=== PATIENT | female | born 1930 | race Hispanic/Latino ===

== ENCOUNTER 2017-10-18 11:29 | Inpatient (IN) | payer MEDICARE, MEDICAID ==
[2017-10-18] MEDS ORDERED: Sodium Chloride 0.9% 2,000 ML IV STA (11:51)
--- NOTE | 2017-10-18 11:56 | ED PDOC ---
Arrival/HPI - General Time Seen by Provider: 10/18/17 11:50 Historian: Half-Way - History of Present Illness Narrative History of Present Illness (Text): 10/18/17 11:56 A 86 year old female [facility] the emergency department [facility] for a [facility]. Patient was found to have worsening renal function and leukocytosis yesterday. She was given Augmentin for a urinary tract infection. Prior charts reviewed, patient has a history of dementia. Patient unable to provide additional hisotry, HPI and ROS limited. PMD: Dr. Rojo Time/Duration: Prior to Arrival Symptom Course: Unchanged Context: Home (jail) Past Medical History - Provider Review Nursing Documentation Reviewed: Yes - Infectious Disease Hx of Infectious Diseases: None - Tetanus Immunization Tetanus Immunization: Unknown - Cardiac Hx Cardiac Disorders: Yes Hx Cardiac Arrhythmia: Yes Hx Circulatory Problems: Yes Hx Congestive Heart Failure: Yes Hx Hypertension: Yes Hx Pacemaker: Yes (LEFT CHEST WALL) Other/Comment: CAD - Pulmonary Hx Respiratory Disorders: Yes Hx Asthma: Yes Hx Pneumonia: Yes - Neurological Hx Neurological Disorder: Yes Hx Dementia: Yes - HEENT Hx HEENT Disorder: Yes Hx Cataracts: Yes Hx Deafness: Yes - Renal Hx Renal Disorder: Yes Hx Renal Failure: Yes - Endocrine/Metabolic Hx Endocrine Disorders: Yes Hx Diabetes Mellitus Type 1: Yes Hx Hypothyroidism: Yes - Hematological/Oncological Hx Blood Disorders: Yes Hx Anemia: Yes Hx Blood Transfusions: No - Integumentary Hx Dermatological Disorder: Yes (SKIN DRYNESS,EDEMA BILATERAL LE,) Hx Psoriasis: Yes - Musculoskeletal/Rheumatological Hx Musculoskeletal Disorders: Yes Hx Falls: Yes Hx Unsteady Gait: Yes (WALKER) - Gastrointestinal Hx Gastrointestinal Disorders: Yes (CONSTIPATION) Hx Gastroesophageal Reflux: Yes - Genitourinary/Gynecological Hx Genitourinary Disorders: Yes (URGENCY) - Psychiatric Hx Psychophysiologic Disorder: Yes Hx Anxiety: Yes Other/Comment: DEMENTIA - Past Surgical History Past Surgical History: No Previous - Surgical History Hx Cataract Extraction: Yes (RIGHT IOLI) Hx Cardiac Catheterization: Yes - Anesthesia Hx Anesthesia: Yes Hx Anesthesia Reactions: No Hx Malignant Hyperthermia: No - Suicidal Assessment Feels Threatened In Home Enviroment: No Family/Social History - Physician Review Nursing Documentation Reviewed: Yes Family/Social History: No Known Family HX Smoking Status: Never Smoked Hx Alcohol Use: No Hx Substance Use Treatment: No Allergies/Home Meds Allergies/Adverse Reactions: Allergies ciprofloxacin Allergy (Severe, Verified 10/18/17 12:13) RASH Home Medications: Home Meds Medication Instructions Recorded Confirmed Febuxostat [Uloric] 40 mg PO DAILY 11/21/13 01/12/16 Docusate [Colace] 1 tab PO DAILY 01/12/16 01/12/16 Levothyroxine Sodium [Synthroid] 1 tab PO DAILY 01/12/16 01/12/16 Review of Systems - Review of Systems Systems not reviewed;Unavailable: Dementia Physical Exam Vital Signs Reviewed: Yes Vital Signs Temp Pulse Resp BP Pulse Ox 10/18/17 14:56 69 29 H 103/55 L 100 10/18/17 13:15 102.8 F H 10/18/17 12:12 102.8 F H 78 32 H 137/63 100 Temperature: Febrile Blood Pressure: Normal Pulse: Regular Respiratory Rate: Tachypneic Appearance: Positive for: Ill-Appearing, Cachectic - Systems Exam Head: Present: Atraumatic, Normocephalic Pupils: Present: PERRL Extroacular Muscles: Present: EOMI Conjunctiva: Present: Normal Mouth: Present: Dry Neck: Present: Normal Range of Motion Respiratory/Chest: Present: Decreased Breath Sounds, Other (pacemaker to chest wall). No: Respiratory Distress, Accessory Muscle Use Cardiovascular: Present: Regular Rate and Rhythm, Normal S1, S2. No: Murmurs Abdomen: Present: Normal Bowel Sounds. No: Tenderness, Distention, Peritoneal Signs Upper Extremity: Present: Normal Inspection, Normal ROM (Spontaneous movment of extremities). No: Cyanosis, Edema Lower Extremity: Present: Normal Inspection, Normal ROM (Spontaneous movment of extremities). No: Edema Neurological: Present: Other (opens eyes to voice). No: Speech Normal (making nonsensical speech) Skin: Present: Warm, Dry, Normal Color. No: Rashes Psychiatric: Present: Lethargic, Other (Calm, Cooperative) Medical Decision Making ED Course and Treatment: 10/18/17 11:56 Impression: A 86 year old female sent in form jail for fever Plan: -- Chest xray -- EKG -- Labs -- Blood and Urine culture -- Urinalysis -- Tylenol and IV fluids -- Reassess and disposition Progress Notes: EKG shows paced rhythm at 81 BPM. Interpreted by me. Prior patient documentation demonstrates a "do no hospitalize order". When jail questioned, they report patients power of contracts attorney rescinded it. Report Date : 10/18/2017 12:24 PROCEDURE: Chest xray Dictator : Johnathan Allen MD IMPRESSION: Severe vascular congestion 10/18/17 13:21 Lactate elevated to 3.3. Code sepsis called. 2L NS IV bolus ordered when patient arrived due to SIRS criteria. That is over 30cc/kg. Nurse instructed that those 2L must infuse in under 1 hour. Broad spectrum antibiotics ordered. 10/18/17 14:10 Labs reviewed, significant for leukocytosis, elevated lactate, high potassium and acute kidney injury. IV fluids and broad spectrum antibiotics started. Case discussed with Dr. Rojo, accepts admission to [facility]. Confirms patients DNR/DNI status. 10/18/17 15:23 - Lab Interpretations Lab Results: 10/18/17 12:45 10/18/17 13:46 Lab Results 10/18/17 13:46: Sodium 143, Chloride 104, Potassium 5.5 H, Carbon Dioxide 22, Anion Gap 22 H, BUN 95 H, Creatinine 3.5 H, Est GFR ( Amer) 15, Est GFR ( Non-Af Amer) 12, Random Glucose 214 H, Calcium 9.3, Total Bilirubin 1.1, AST 557 H, ALT 280 H, Alkaline Phosphatase 88, Total Protein 7.6, Albumin 4.0, Globulin 3.6, Albumin/Globulin Ratio 1.1 10/18/17 13:00: Urine Color Yellow, Urine Appearance Sl cloudy, Urine pH 6.0, Ur Specific [place] 1.020, Urine Protein 30 H, Urine Glucose (UA) Negative, Urine Ketones Negative, Urine Blood Trace-intact H, Urine Nitrate Negative, Urine Bilirubin Negative, Urine Urobilinogen 0.2, Ur Leukocyte Esterase Negative , Urine RBC 0 - 2, Urine WBC Negative 10/18/17 12:45: Phosphorus 5.1 H, Magnesium 2.3 H 10/18/17 12:45: pO2 44, VBG pH 7.41, VBG pCO2 36.0 L, VBG HCO3 22.8, VBG Total CO2 23.9, VBG O2 Sat (Calc) 78.4 H, VBG Base Excess -1.4 L, VBG Potassium 5.9 H , Sodium 139.0, Chloride 106.0, Glucose 221 H, Lactate 3.2 H, FiO2 21.0, Venous Blood Potassium 5.9 H 10/18/17 12:45: WBC 13.6 H D, RBC 3.37 L, Hgb 10.6 L, Hct 31.9 L, MCV 94.7, MCH 31.5, MCHC 33.2, RDW 13.3, Plt Count 122, MPV 10.6, Gran % 89.5 H, Lymph % (Auto ) 6.6 L, [place] % (Auto) 3.8, Eos % (Auto) 0.0 L, Baso % (Auto) 0.1, Gran # 12.17 H, Lymph # 0.9 L, [place]cher # 0.5, Eos # 0.0, Baso # 0.01 I have reviewed the lab results: Yes - RAD Interpretation Radiology Orders: 10/18/17 11:51 CHEST PORTABLE [RAD] Stat - Medication Orders Current Medication Orders: Discontinued Medications Acetaminophen (Tylenol 325 Mg Supp) 650 mg RC STAT STA Stop: 10/18/17 11:52 Last Admin: 10/18/17 13:15 Dose: 650 mg MAR Pain/Vitals Document 10/18/17 13:15 HI (Rec: 10/18/17 13:17 HI [id number]) Vitals Temperature (97.6 F-99.6 F) 102.8 F Sodium Chloride (Sodium Chloride 0.9%) 2,000 mls @ 999 mls/hr IV .Q2H1M STA Stop: 10/18/17 13:51 Last Admin: 10/18/17 13:15 Dose: 999 mls/hr eMAR Start Stop Document 10/18/17 13:15 HI (Rec: 10/18/17 13:15 HI [id number]) Intravenous Solution Start Date 10/18/17 Start Time 13:15 Sodium Chloride 1,000 ml/ IV (SUPPLIES) 1,000 mls @ 2,585.46 mls/hr IV ONCE ONE PRN Reason: 60 ML/KG/HR Stop: 10/18/17 13:20 Last Admin: 10/18/17 13:15 Dose: 2,585.46 mls/hr eMAR Start Stop Document 10/18/17 13:15 HI (Rec: 10/18/17 13:42 HI [id number]) Intravenous Solution Start Date 10/18/17 Start Time 13:15 Vancomycin HCl (Vancomycin 1gm) 1 gm in 250 mls @ 167 mls/hr IVPB STAT STA PRN Reason: Protocol Stop: 10/18/17 15:00 Last Admin: 10/18/17 14:11 Dose: 167 mls/hr eMAR Start Stop Document 10/18/17 14:11 HI (Rec: 10/18/17 14:12 HI [id number]) Intravenous Solution Start Date 10/18/17 Start Time 14:12 Piperacillin Sod/Tazobactam Sod (Zosyn 3.375 In Ns 100ml) 100 mls @ 200 mls/hr IVPB STAT STA PRN Reason: Protocol Stop: 10/18/17 14:00 Last Admin: 10/18/17 13:45 Dose: 200 mls/hr eMAR Start Stop Document 10/18/17 13:45 HI (Rec: 10/18/17 13:45 HI [id number]) Intravenous Solution Start Date 10/18/17 Start Time 13:45 - Scribe Statement The provider has reviewed the documentation as recorded by the Brook Gruber Provider Scribe Attestation: All medical record entries made by the Scribe were at my direction and personally dictated by me. I have reviewed the chart and agree that the record accurately reflects my personal performance of the history, physical exam, medical decision making, and the department course for this patient. I have also personally directed, reviewed, and agree with the discharge instructions and disposition. Disposition/Present on Arrival - Present on Arrival Any Indicators Present on Arrival: No History of DVT/PE: No History of Uncontrolled Diabetes: Yes Urinary Catheter: No History Surgical Site Infection Following: None - Disposition Have Diagnosis and Disposition been Completed?: Yes Diagnosis: Sepsis, Dementia, Acute kidney injury Disposition: HOSPITALIZED Disposition Time: 15:24 Patient Plan: Admission Condition: FAIR
--- NOTE | 2017-10-18 12:25 | RAD ---
HISTORY: fever COMPARISON: 12/06/2014 FINDINGS: LUNGS: There is severe vascular congestion PLEURA: No significant pleural effusion identified, no pneumothorax apparent. CARDIOVASCULAR: Mild cardiomegaly. Calcifications within the left ventricle. Dual lead pacemaker OSSEOUS STRUCTURES: No significant abnormalities. VISUALIZED UPPER ABDOMEN: Normal. OTHER FINDINGS: None. IMPRESSION: Severe vascular congestion
[2017-10-18 13:03] LABS: VENOUS BLOOD GAS BASE EXCESS -1.4 mmol/L (0.0-2.0); VENOUS BLOOD GAS PO2 44 mm/Hg (30-55); VENOUS BLOOD PH 7.41 (7.32-7.43)
[2017-10-18 13:05] LABS: BASO # 0.01 K/mm3 (0.0-2.0); BASO % 0.1 % (0.0-3.0); GRAN # 12.17 (1.4-6.5); GRAN % 89.5 % (50.0-68.0); HEMOGLOBIN 10.6 g/dL (12.0-16.0); LYMPH # 0.9 (1.2-3.4); LYMPH % 6.6 % (22.0-35.0); MEAN CELL VOLUME 94.7 fl (80.0-105.0); MEAN CORPUSCULAR HEMOGLOBIN 31.5 pg (25.0-35.0); MEAN CORPUSCULAR HGB CONC 33.2 g/dl (31.0-37.0); MEAN PLATELET VOLUME 10.6 fl (7.0-11.0); MONO # 0.5 (0.1-0.6); MONO % 3.8 % (1.0-6.0); RBC 3.37 10^6/uL (3.5-6.1); RED CELL DISTRIBUTION WIDTH 13.3 % (11.5-14.5); WHITE BLOOD COUNT 13.6 10^3/ul (4.5-11.0)
[2017-10-18 13:21] LABS: MAGNESIUM 2.3 mg/dL (1.7-2.2)
[2017-10-18] MEDS ORDERED: Piperacillin/Tazobact 3.375 gm 100 ML IVPB STA (13:31)
[2017-10-18] MEDS ORDERED: Vancomycin 1gm in NS 250ml 1 GM/250 ML BAG IVPB STA (13:31)
[2017-10-18 13:36] LABS: URINE BILIRUBIN NEGATIVE (NEGATIVE); URINE BLOOD TRACE-INTACT (NEGATIVE); URINE GLUCOSE (UA) NEGATIVE (NEGATIVE); URINE LEUKOCYTE ESTERASE NEGATIVE Leu/uL (NEGATIVE); URINE NITRATE NEGATIVE (NEGATIVE); URINE PROTEIN 30 mg/dL (<30 mg/dL); URINE UROBILINOGEN 0.2 E.U./dL (<1 E.U./dL)
[2017-10-18 13:37] LABS: URINE APPEARANCE SL CLOUDY (CLEAR); URINE COLOR YELLOW (YELLOW)
[2017-10-18 13:46] LABS: URINE RBC 0 - 2 /hpf (0-2); URINE WBC NEGATIVE /hpf (0-6)
[2017-10-18 14:08] LABS: ALB/GLOB RATIO 1.1 (1.1-1.8); CALCIUM 9.3 mg/dL (8.4-10.5)
[2017-10-18 16:31] LABS: VENOUS BLOOD GAS BASE EXCESS -3.4 mmol/L (0.0-2.0); VENOUS BLOOD GAS PO2 214 mm/Hg (30-55); VENOUS BLOOD PH 7.41 (7.32-7.43)
--- NOTE | 2017-10-18 17:45 | CARD ---
APPROVED REPORT EKG Measurement Heart [id number] ID [id number] <Conclusion> Atrial sensed ventricular paced rhythm
--- NOTE | 2017-10-18 18:44 | PCM.SEPTIC ---
Sepsis Progress Note - Reassessment Type Date of Evaluation: 10/18/17 Time of Evaluation: 18:43 Reassessment Type: Non-invasive reassessment - Non Invasive Reassessment Were the most recent vital sign reviewed: Yes Vital Sign (Latest): Temp Pulse Resp BP Pulse Ox 97.6 F 73 24 93/49 L 96 10/18/17 17:30 10/18/17 17:30 10/18/17 17:30 10/18/17 17:30 10/18/17 17:30 Cardiovascular: Yes: Regular Rate, Rhythm. No: Edema, Bradycardia, Tachycardia , Irregularly Irregular Respiratory: Yes: Normal Breath Sounds. No: Decreased Breath Sounds, Accessory Muscle Use, Crackles, Rales, Rhonchi, Respiratory Distress Capillary Refill: Normal (Less than 2 sec) Pulses: Normal Radial, Decreased Dorsalis Pedis, Decreased Posterior Tibialis Skin: Normal Color, Warm, Dry
--- NOTE | 2017-10-19 07:59 | CP.PCM.HP ---
<Diya Garcia - Last Filed: 10/19/17 11:31> History of Present Illness - History of Present Illness History of Present Illness: PGY-[address] Rojo CC: Worsening renal function and leukocytosis Ms Vences, a 86 year old [place] female, care home resident at [facility], with PMH dementia, presented to the ED for a fever. Per Zachary RN at the care home, pt vomited x2 on 10/15. Denied diarrhea or abdominal pain. VSS at that moment but accuchecl was in 315. Blood work was sent , and started augmentin for urinary tract infection. On the , care home recorded Tmax 104.2. Blood work at care home showed leukocytosis and worsening renal function. At baseline, pt is AAO x 2 and ambulate with rolling walker and able to make needs known. Patients power of assistant district attorney rescinded DNH which was in the chart. DNR/DNI was confirmed PMH Dementia Cardiac arrthymia s/o pacemaker placement CAD CHF, LVEF 50% (2014) Severe mitral regurg, Sever tricuspid regurl Asthma, COPD, severe Pulm HTN R Cataract, Deafness DM 1 CKD 3B Hypothyroisidm Anemia Gait disfunction, walker Hx fall Hx Esophagitis, Constipation Urinary urgency PSH R and L cataract extraction 2016 Pacemaker placement FH n/a SH Never smoke Denies ETOH/Drug All Ciprofloxacin Med Doryx 100 Q12 ASA, Plavix, cireg, lipitor Lasix 40 QD Lovaza, Febuxostate 40 daily, Zetia Duoneb Q6 Colace, Protonix Synthroid mag-Ox Rivastigmine, Ritalin Humulin N 5 u [facility] PMD: Dr. Rojo Present on Admission - Present on Admission Any Indicators Present on Admission: No Review of Systems - Review of Systems Systems not reviewed;Unavailable: Dementia All systems: reviewed and no additional remarkable complaints except - Constitutional Constitutional: Fatigue, Fever, Lethargy, Malaise Past Patient History - Infectious Disease Hx of Infectious Diseases: None - Tetanus Immunizations Tetanus Immunization: Unknown - Past Medical History & Family History Past Medical History?: Yes - Past Social History Smoking Status: Unknown If Ever Smoked - CARDIAC Hx Cardiac Disorders: Yes Hx Cardia Arrhythmia: Yes Hx Circulatory Problems: Yes Hx Congestive Heart Failure: Yes Hx Hypertension: Yes Hx Pacemaker: Yes (left chest wall) Other/Comment: CAD - PULMONARY Hx Respiratory Disorders: Yes Hx Asthma: Yes Hx Pneumonia: Yes - NEUROLOGICAL Hx Neurological Disorder: Yes Hx Dementia: Yes - HEENT Hx HEENT Problems: Yes Hx Blind: Yes Hx Deafness: Yes - RENAL Hx Chronic Kidney Disease: Yes Hx Renal Failure: Yes - ENDOCRINE/METABOLIC Hx Endocrine Disorders: Yes Hx Diabetes Mellitus Type 2: Yes Hx Hypothyroidism: Yes - HEMATOLOGICAL/ONCOLOGICAL Hx Blood Disorders: No - INTEGUMENTARY Hx Dermatological Problems: No - MUSCULOSKELETAL/RHEUMATOLOGICAL Hx Musculoskeletal Disorders: Yes Hx Falls: Yes Hx Unsteady Gait: Yes - GASTROINTESTINAL Hx Gastrointestinal Disorders: Yes Hx Gastroesophageal Reflux: Yes - GENITOURINARY/GYNECOLOGICAL Hx Genitourinary Disorders: Yes Other/Comment: urgency - PSYCHIATRIC Hx Psychophysiologic Disorder: Yes Other/Comment: dementia - SURGICAL HISTORY Hx Surgeries: Yes (rt IOLI) - ANESTHESIA Hx Anesthesia: Yes Hx Anesthesia Reactions: No Hx Malignant Hyperthermia: No Meds Allergies/Adverse Reactions: Allergies Allergy/AdvReac Type Severity Reaction Status Date / Time ciprofloxacin Allergy Severe RASH Verified 10/18/17 12:13 Physical Exam - Constitutional Appears: No Acute Distress, Cachectic - Head Exam Head Exam: ATRAUMATIC, NORMAL INSPECTION, NORMOCEPHALIC - Eye Exam Eye Exam: EOMI, Normal appearance, PERRL. absent: Scleral icterus Pupil Exam: NORMAL ACCOMODATION - ENT Exam ENT Exam: Mucous Membranes Dry - Neck Exam Additional comments: supple - Respiratory Exam Respiratory Exam: Decreased Breath Sounds (all lung mcfarlane), Clear to Auscultation Bilateral, Rales (mild lung bases), NORMAL BREATHING PATTERN. absent: Rhonchi, Wheezes - Cardiovascular Exam Cardiovascular Exam: REGULAR RHYTHM, +S1, +S2, Systolic Murmur - GI/Abdominal Exam GI & Abdominal Exam: Normal Bowel Sounds, Soft. absent: Tenderness - Extremities Exam Extremities exam: Positive for: pedal pulses present. Negative for: calf tenderness, pedal edema - Neurological Exam Neurological exam: Alert Additional comments: Able to follow simple instructions and make needs known - Psychiatric Exam Psychiatric exam: Normal Affect, Normal Mood - Skin Skin Exam: Dry, Warm Additional comments: scratch mckeon on b/l legs Results - Vital Signs Recent Vital Signs: Last Vital Signs Temp 97.3 F L 10/19/17 00:00 Pulse 65 10/19/17 00:00 Resp 20 10/19/17 00:00 BP 108/53 L 10/19/17 00:00 Pulse Ox 99 10/19/17 00:00 - Labs Result Diagrams: 10/19/17 09:15 10/19/17 09:15 Labs: Laboratory Results - last 24 hr 10/18/17 16:28 pO2 214 H VBG pH 7.41 VBG pCO2 32.0 L VBG HCO3 20.3 L VBG Total CO2 21.3 L VBG O2 Sat (Calc) 100.5 H VBG Base Excess -3.4 L VBG Potassium 4.9 Sodium 142.0 Chloride 111.0 H Glucose 198 H Lactate 1.3 FiO2 21.0 Venous Blood Potassium 4.9 Assessment & Plan - Assessment and Plan (Free Text) Plan: 86F from care home with dementia presented with fever and leukocytosis, She was being actively treated for UTI on augmentin. In the ED, sepsis code was called Tmax 102.8, RR 32, lactate 3.2. Fluid resusitation was started and pt received vancomycin and zosyn x 1. Pt is likely septic from UTI vs aspiration pneumonia. ARBEN and transaminitis likely reactive to sepsis. CXR showed severe vascular congestion without pulmonary edema, likely from sepsis vs CHF exacerbation r/o aspiration penumonia. Sepsis likely from UTI r/o aspiration pneumonia - Zosyn and Vanco x 1 - Pending blood and urine culture - Pending rapid flu, procalcitonin - ID consult - Swallow eval and treat - Consider CT chest to r/o infiltrate vs fluid overload vs pna - tylenol prn, zofran prn, aspiration precaution Severe vascular congestion Hx CHF with LVEF 50% (2014) Severe mitral and tricspid regurgitation with atrial enlargements - O2 PRN - Consider echocardiogram - TSH Arethymia s/p pacemaker placement - Consider pacemaker interrogation ARBEN on CKD 3B, pre-renal vs intrinsic. Has ruled out obstruction - sarmiento to measure i/o - Consider FeNa Transaminitis likely reactive to sepsis r/o infection or cholestasis etiology AST 557, ALT 280 - consider hepatitis panel and abdominal ultrasound to r/o gallstone Hypothyrodism - Levothyroxine 100 mcg QD Consider GI prophylaxis due to sepsis Consider DVT prophylaxis due to lethargy and decreased activity s/r/d/w Dr. Rojo <Raj Rojo S - Last Filed: 10/19/17 17:30> Results - Vital Signs Recent Vital Signs: Last Vital Signs Temp 97.6 F 10/19/17 07:30 Pulse 73 10/19/17 07:30 Resp 24 10/19/17 07:30 BP 118/68 10/19/17 07:30 Pulse Ox 96 10/19/17 07:30 - Labs Result Diagrams: 10/19/17 09:15 10/19/17 09:15 Labs: Laboratory Results - last 24 hr 10/19/17 10/19/17 10/19/17 09:15 09:15 10:10 WBC 18.2 H D RBC 3.58 Hgb 11.2 L Hct 33.7 L MCV 94.1 MCH 31.3 MCHC 33.2 RDW 13.3 Plt Count 138 MPV 10.3 Sodium 146 Potassium 5.1 H Chloride 113 H Carbon Dioxide 20 L Anion Gap 19 BUN 103 H Creatinine 3.5 H Est GFR ( Amer) 15 Est GFR (Non-Af Amer) 12 Random Glucose 124 H Calcium 8.4 Total Bilirubin 1.1 AST 939 H D ALT 634 H Alkaline Phosphatase 79 Total Protein 6.7 Albumin 3.3 Globulin 3.4 Albumin/Globulin Ratio 0.9 L Procalcitonin 27.74 H Influenza Typ A,B (EIA) 10/19/17 13:50 WBC RBC Hgb Hct MCV MCH MCHC RDW Plt Count MPV Sodium Potassium Chloride Carbon Dioxide Anion Gap BUN Creatinine Est GFR ( Amer) Est GFR (Non-Af Amer) Random Glucose Calcium Total Bilirubin AST ALT Alkaline Phosphatase Total Protein Albumin Globulin Albumin/Globulin Ratio Procalcitonin Influenza Typ A,B (EIA) Negative for flu a/b Assessment & Plan - Assessment and Plan (Free Text) Plan: Pt seen and examined by me. I reviewed the above note and the ER note. Agree with the Assessment and plan. Reviewed old notes. Reviewed labs and medications. Spoke to family.
[2017-10-19 09:29] LABS: HEMOGLOBIN 11.2 g/dL (12.0-16.0); MEAN CELL VOLUME 94.1 fl (80.0-105.0); MEAN CORPUSCULAR HEMOGLOBIN 31.3 pg (25.0-35.0); MEAN CORPUSCULAR HGB CONC 33.2 g/dl (31.0-37.0); MEAN PLATELET VOLUME 10.3 fl (7.0-11.0); RBC 3.58 10^6/uL (3.5-6.1); RED CELL DISTRIBUTION WIDTH 13.3 % (11.5-14.5); WHITE BLOOD COUNT 18.2 10^3/ul (4.5-11.0)
[2017-10-19 09:45] LABS: ALB/GLOB RATIO 0.9 (1.1-1.8); ALBUMIN 3.3 g/dL (3.0-4.8); CALCIUM 8.4 mg/dL (8.4-10.5)
[2017-10-19] MEDS ORDERED: Levothyroxine 25 MCG TAB PO SCH (10:00)
[2017-10-19] MEDS: Sodium Chloride 0.9% 1,000 ML IV SCH (10:30)
[2017-10-19] MEDS: Levothyroxine 100 MCG TAB PO SCH (10:31)
--- NOTE | 2017-10-19 13:40 | CP.PCM.CON ---
History of Present Illness - History of Present Illness History of Present Illness: 86 year old female with PMH of dementia, hypothyroidism, dementia, S/P pacemaker placement, CAD chronic CHF, COPD, pulmonary HTN, chronic renal failure , chronic anemia, history of esophagitis, right cataract, was brought in to [facility] because of fever, as well as worsening renal failure and leukocytosis. She was being treated for possible UTI as an outpatient with Augmentin. There is no note of convulsions, no loss of consciousness, no vomiting, no diarrhea. Full review of systems is unobtainable because of the patient's dementia. In the ED, she was noted to have leukocytosis, fever and lactic acidosis. Infectious Diseases consult is requested to further evaluate and manage. Review of Systems - Review of Systems Systems not reviewed;Unavailable: Dementia Past Patient History - Infectious Disease Hx of Infectious Diseases: None - Tetanus Immunizations Tetanus Immunization: Unknown - Past Medical History & Family History Past Medical History?: Yes - Past Social History Smoking Status: Unknown If Ever Smoked - CARDIAC Hx Cardiac Disorders: Yes Hx Cardia Arrhythmia: Yes Hx Circulatory Problems: Yes Hx Congestive Heart Failure: Yes Hx Hypertension: Yes Hx Pacemaker: Yes (left chest wall) Other/Comment: CAD - PULMONARY Hx Respiratory Disorders: Yes Hx Asthma: Yes Hx Pneumonia: Yes - NEUROLOGICAL Hx Neurological Disorder: Yes Hx Dementia: Yes - HEENT Hx HEENT Problems: Yes Hx Blind: Yes Hx Deafness: Yes - RENAL Hx Chronic Kidney Disease: Yes Hx Renal Failure: Yes - ENDOCRINE/METABOLIC Hx Endocrine Disorders: Yes Hx Diabetes Mellitus Type 2: Yes Hx Hypothyroidism: Yes - HEMATOLOGICAL/ONCOLOGICAL Hx Blood Disorders: No - INTEGUMENTARY Hx Dermatological Problems: No - MUSCULOSKELETAL/RHEUMATOLOGICAL Hx Musculoskeletal Disorders: Yes Hx Falls: Yes Hx Unsteady Gait: Yes - GASTROINTESTINAL Hx Gastrointestinal Disorders: Yes Hx Gastroesophageal Reflux: Yes - GENITOURINARY/GYNECOLOGICAL Hx Genitourinary Disorders: Yes Other/Comment: urgency - PSYCHIATRIC Hx Psychophysiologic Disorder: Yes Other/Comment: dementia - SURGICAL HISTORY Hx Surgeries: Yes (rt IOLI) - ANESTHESIA Hx Anesthesia: Yes Hx Anesthesia Reactions: No Hx Malignant Hyperthermia: No Meds Allergies/Adverse Reactions: Allergies Allergy/AdvReac Type Severity Reaction Status Date / Time ciprofloxacin Allergy Severe RASH Verified 10/18/17 12:13 Physical Exam - Constitutional Appears: Chronically Ill - Head Exam Head Exam: NORMAL INSPECTION - Respiratory Exam Respiratory Exam: Decreased Breath Sounds - Cardiovascular Exam Cardiovascular Exam: +S1, +S2 - GI/Abdominal Exam GI & Abdominal Exam: Soft. absent: Tenderness Results - Vital Signs Recent Vital Signs: Last Vital Signs Temp 97.3 F L 10/19/17 00:00 Pulse 65 10/19/17 00:00 Resp 20 10/19/17 00:00 BP 108/53 L 10/19/17 00:00 Pulse Ox 99 10/19/17 00:00 - Labs Result Diagrams: 10/19/17 09:15 10/19/17 09:15 Labs: Laboratory Results - last 24 hr 10/18/17 16:28 pO2 214 H VBG pH 7.41 VBG pCO2 32.0 L VBG HCO3 20.3 L VBG Total CO2 21.3 L VBG O2 Sat (Calc) 100.5 H VBG Base Excess -3.4 L VBG Potassium 4.9 Sodium 142.0 Chloride 111.0 H Glucose 198 H Lactate 1.3 FiO2 21.0 Venous Blood Potassium 4.9 Assessment & Plan - Assessment and Plan (Free Text) Plan: Assessment Systemic Inflammatory response syndrome, R/O sepsis from UTI, R/O Influenza transaminitis, etiology to be determined dementia hypothyroidism dementia S/P pacemaker placement CAD chronic CHF COPD pulmonary HTN chronic renal failure chronic anemia history of esophagitis right cataract Plan Started patient on a dose of IV Vancomycin and started Cefepime pending blood cx , urine cx; will check rapid Influenza test CXR is showing vascular congestion follow up U/S abdomen for the transaminitis and hepatitis profile
--- NOTE | 2017-10-19 13:46 | US ---
HISTORY: transaminitis COMPARISON: None. TECHNIQUE: Sonographic evaluation of the abdomen. FINDINGS: LIVER: Measures cm. Normal echogenicity of the liver parenchyma. No mass. No intrahepatic bile duct dilatation. GALLBLADDER: Unremarkable. No gallstones. COMMON BILE DUCT: Measures mm. No stones. No dilatation. PANCREAS: Unremarkable as visualized. No mass. No ductal dilatation. RIGHT KIDNEY: Measures cm. Normal echogenicity. No calculus, mass, or hydronephrosis. 1.6 centimeter hyperechoic mass along the mid right kidney. LEFT KIDNEY: Measures cm. Normal echogenicity. No calculus, mass, or hydronephrosis. 2.5 centimeter mid left renal cyst. SPLEEN: Normal in size and contour. No mass. AORTA: No aneurysmal dilatation. IVC: Unremarkable. OTHER FINDINGS: None. 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 Correlate with CT scan with without contrast. Simple cyst in the left kidney.
[2017-10-19] MEDS: Cefepime 1gm in NS 100ml 1 GM/100 ML BAG IVPB SCH (14:16)
[2017-10-19] MEDS: Oseltamivir 6 MG/ML PO SCH (16:25)
--- NOTE | 2017-10-20 02:11 | CP.PCM.PN ---
Subjective - Date & Time of Evaluation Date of Evaluation: 10/20/17 Time of Evaluation: 02:11 - Subjective Subjective: S:Low grade fever. 100.2* It was 103*F.earlier . Medical record was reviewed. Septic work up has been done, is on Maxipime, ID customer service sales consultant is on case. O: Last Vital Signs 3 Temp 103 F H 10/19/17 19:26 Pulse 81 10/19/17 19:26 Resp 20 10/19/17 19:26 BP 142/76 10/19/17 19:26 Pulse Ox 91 L 10/19/17 19:26 LUNGS: Normal breathing pattern. A: Low grade fever. P: Liquid tylenol as ordered. Objective - Vital Signs/Intake and Output Vital Signs (last 24 hours): Temp Pulse Resp BP Pulse Ox 103 F H 81 20 142/76 91 L 10/19/17 19:26 10/19/17 19:26 10/19/17 19:26 10/19/17 19:26 10/19/17 19:26 Intake and Output: 10/19/17 10/20/17 18:59 06:59 Intake Total 60 Output Total 100 Balance -100 60 - Medications Medications: Current Medications Sodium Chloride (Sodium Chloride 0.9%) 1,000 mls @ 75 mls/hr IV .[id number] NAINA Last Admin: 10/19/17 10:30 Dose: 75 mls/hr Cefepime HCl (Maxipime 1gm) 1 gm in 100 mls @ 100 mls/hr IVPB Q24H NAINA PRN Reason: Protocol Last Admin: 10/19/17 14:16 Dose: 100 mls/hr Levothyroxine Sodium (Synthroid) 100 mcg PO DAILY NAINA Last Admin: 10/19/17 10:31 Dose: 100 mcg Oseltamivir Phosphate (Tamiflu Susp) 30 mg PO DAILY NAINA PRN Reason: Protocol Last Admin: 10/19/17 16:25 Dose: 30 mg - Labs Labs: 10/19/17 09:15 10/19/17 09:15
[2017-10-20] MEDS ORDERED: Acetaminophen 160 mg/5 ml UD PO STA (02:13)
[2017-10-20] MEDS: Sodium Chloride 0.9% 1,000 ML IV SCH ×2 (02:45→18:12)
[2017-10-20 07:28] LABS: HEMOGLOBIN 10.8 g/dL (12.0-16.0); MEAN CELL VOLUME 94.9 fl (80.0-105.0); MEAN CORPUSCULAR HEMOGLOBIN 30.7 pg (25.0-35.0); MEAN CORPUSCULAR HGB CONC 32.3 g/dl (31.0-37.0); RBC 3.52 10^6/uL (3.5-6.1); RED CELL DISTRIBUTION WIDTH 13.4 % (11.5-14.5); WHITE BLOOD COUNT 14.5 10^3/ul (4.5-11.0)
[2017-10-20 07:46] LABS: T4 5.8 ug/dL (5.5-11.0)
[2017-10-20 07:51] LABS: ALBUMIN 3.2 g/dL (3.0-4.8); BLOOD UREA NITROGEN 119 mg/dL (7-21); CALCIUM 8.4 mg/dL (8.4-10.5); GFR AFRICAN-AMERICAN 13; GFR NON-AFRICAN AMERICAN 11
[2017-10-20 10:23] LABS: ALT/SGPT 3844 U/L (7-56)
[2017-10-20] MEDS: Acetaminophen 160 mg/5 ml UD PO PRN ×2 (10:31→18:30)
[2017-10-20] MEDS: Levothyroxine 100 MCG TAB PO SCH (10:31)
[2017-10-20] MEDS: Oseltamivir 6 MG/ML PO SCH (10:57)
[2017-10-20 11:22] LABS: AST/SGOT 5978 U/L (14-36)
[2017-10-20] MEDS: Cefepime 1gm in NS 100ml 1 GM/100 ML BAG IVPB SCH (18:11)
--- NOTE | 2017-10-20 21:39 | PN ---
DATE: 10/20/2017 SUBJECTIVE: The patient is seen earlier this morning in room 574, bed 2. No fevers this morning. PHYSICAL EXAMINATION: VITAL SIGNS: However, last night, the patient did have a temperature of 103, blood pressure is 140/70, respiratory rate of 20, heart rate of 81, saturating at 91% on room air. HEENT: Unremarkable. NECK: Supple. LUNGS: Decreased breath sounds. HEART: Normal S1 and S2. ABDOMEN: Soft and nontender. LABORATORY DATA: Reveals a white count of 14,500, hemoglobin of 10, platelets of 154. BUN of 119, creatinine of 3.9. LFTs are elevated and increased now. Urinalysis is noted. Serology reveals influenza is negative. Microbiology reveals blood culture, no growth and urine cultures, no growth. Dr. Jimenez's progress note from today is reviewed. The patient's abdominal ultrasound is noted. Chest x-ray show severe vascular congestion. ASSESSMENT AND PLAN: This is an 86-year-old female with coronary artery disease, chronic obstructive lung disease, pulmonary hypertension, renal failure, chronic anemia, esophagitis, who was admitted with systemic inflammatory response syndrome, dementia, hypothyroidism, pacemaker, congestive heart failure on vancomycin and cefepime with thus far negative blood cultures, negative urine cultures, and vascular congestion on the chest x-ray. Overall prognosis is quite poor. We will continue written course on cefepime. Bobby Stringer MD
[2017-10-21 07:47] LABS: HEMOGLOBIN 10.7 g/dL (12.0-16.0); MEAN CORPUSCULAR HEMOGLOBIN 31.4 pg (25.0-35.0); MEAN CORPUSCULAR HGB CONC 31.9 g/dl (31.0-37.0); MEAN PLATELET VOLUME 11.3 fl (7.0-11.0); RBC 3.41 10^6/uL (3.5-6.1); RED CELL DISTRIBUTION WIDTH 13.6 % (11.5-14.5); WHITE BLOOD COUNT 10.4 10^3/ul (4.5-11.0)
[2017-10-21 08:05] LABS: MEAN CELL VOLUME 98.2 fl (80.0-105.0)
[2017-10-21 08:42] LABS: ALB/GLOB RATIO 0.9 (1.1-1.8); ALBUMIN 2.8 g/dL (3.0-4.8); CALCIUM 8.3 mg/dL (8.4-10.5)
[2017-10-21] MEDS: Oseltamivir 6 MG/ML PO SCH (10:54)
[2017-10-21] MEDS: Levothyroxine 100 MCG TAB PO SCH (10:54)
--- NOTE | 2017-10-21 11:53 | PN ---
DATE: 10/21/2017 SUBJECTIVE: The patient is in bed, in no acute distress, nontoxic. However, chronically ill. PHYSICAL EXAMINATION: VITAL SIGNS: Temperature is 97, blood pressure is 130/60, respiratory rate 20, heart rate of 70. HEENT: Unremarkable. NECK: Supple. LUNGS: Have decreased breath sounds. HEART: Normal S1, S2. ABDOMEN: Soft, nontender. LABORATORY DATA: Reveals a white count of 14,100, hemoglobin of 10, platelets of 126. Chemistries reveals a BUN of 118, creatinine of 3.2. Procalcitonin of 27.7 and urinalysis is noted and serology is noted. Pending microbiology reveals the blood cultures are no growth, urine cultures have no growth and review of orders reveals the patient to be on cefepime and Tamiflu. ASSESSMENT/PLAN: This is a 86-year-old female seen in [facility], bed 2 with coronary artery disease, chronic obstructive lung disease, pulmonary hypertension, renal failure, chronic anemia, esophagitis, admitted with systemic inflammatory response syndrome, dementia, hypothyroidism, pacemaker, congestive heart failure, on cefepime and Tamiflu. The patient with influenza is negative. Blood cultures negative and it is day #3 of cefepime and 3 of Tamiflu. With an elevated procalcitonin and vascular congestion on chest x-ray, we will repeat a procalcitonin today. We will follow closely with you. Of note is the patient has a creatinine of 3.2, although will give an elevated procalcitonin, procalcitonin of 27 out of proportion for a creatinine of 3.2. We will follow with you. Bobby Stringer MD
[2017-10-21] MEDS: Sodium Chloride 0.9% 1,000 ML IV SCH (14:14)
[2017-10-21] MEDS: Cefepime 1gm in NS 100ml 1 GM/100 ML BAG IVPB SCH (14:15)
[2017-10-22 08:17] LABS: HEMOGLOBIN 10.4 g/dL (12.0-16.0); MEAN CELL VOLUME 99.4 fl (80.0-105.0); MEAN CORPUSCULAR HEMOGLOBIN 31.3 pg (25.0-35.0); MEAN CORPUSCULAR HGB CONC 31.5 g/dl (31.0-37.0); MEAN PLATELET VOLUME 11.4 fl (7.0-11.0); RBC 3.32 10^6/uL (3.5-6.1); RED CELL DISTRIBUTION WIDTH 13.7 % (11.5-14.5); WHITE BLOOD COUNT 9.4 10^3/ul (4.5-11.0)
[2017-10-22 08:21] LABS: ALB/GLOB RATIO 0.9 (1.1-1.8); ALBUMIN 2.8 g/dL (3.0-4.8); CALCIUM 8.2 mg/dL (8.4-10.5); MAGNESIUM 2.6 mg/dL (1.7-2.2)
--- NOTE | 2017-10-22 09:17 | RAD ---
HISTORY: Congestion r/o aspiration COMPARISON: 10/18/2017. FINDINGS: LUNGS: The lungs are well inflated. There is linear atelectasis/ scarring in the right upper lobe. No focal consolidation PLEURA: No significant pleural effusion identified, no pneumothorax apparent. CARDIOVASCULAR: Stable mild cardiomegaly. There is stable position of right-sided pacemaker with OSSEOUS STRUCTURES: No significant abnormalities. VISUALIZED UPPER ABDOMEN: Normal. OTHER FINDINGS: None. IMPRESSION: No acute findings.
[2017-10-22] MEDS: Oseltamivir 6 MG/ML PO SCH (10:00)
[2017-10-22] MEDS: Levothyroxine 100 MCG TAB PO SCH (10:00)
[2017-10-22 10:05] LABS: HEPATITIS B SURFACE AG NEGATIVE (NEGATIVE)
[2017-10-22 10:10] LABS: HEPATITIS A IGM NEGATIVE (NEGATIVE)
[2017-10-22 10:23] LABS: HEPATITIS C ANTIBODY Negative (NEGATIVE)
[2017-10-22] MEDS: Cefepime 1gm in NS 100ml 1 GM/100 ML BAG IVPB SCH (14:04)
[2017-10-22] MEDS ORDERED: Insulin Reg-LOW-Coverage SC SCH (16:30)
[2017-10-22 17:27] VITALS: RESP 18
--- NOTE | 2017-10-22 23:03 | PN ---
DATE: 10/22/2017 SUBJECTIVE: The patient is in bed in no acute distress, nontoxic. PHYSICAL EXAMINATION VITAL SIGNS: On exam, temperature is 97, blood pressure is 140/80, respiratory 20, heart rate of 81. HEENT: Examination of HEENT is unremarkable. NECK: Supple. LUNGS: Decreased breath sounds. HEART: Normal S1, S2. Abdomen: Soft. LABORATORY DATA: Laboratory examination reveals a white count of 9.4, hemoglobin of 10, platelets of 127. BUN of 110, creatinine of 2.7 and the urinalysis is noted. Serology is noted. Microbiology reveals the blood cultures are no growth and the urine cultures are no growth. The patient also had a chest x-ray this morning. No focal consolidation. ASSESSMENT AND PLAN: This is an 86-year-old female seen early this morning in 574 with very poor condition with shortness of breath and was chronically ill, cachectic, end-stage coronary artery disease, chronic obstructive lung disease, pulmonary hypertension, renal failure, chronic anemia, esophagitis, admitted with systemic inflammatory response syndrome and dementia, hypothyroidism, pacemaker, congestive heart failure and influenza is negative. We will discontinue the cefepime. The patient with renal disease, acute kidney injury on top of chronic kidney injury. Elevated procalcitonin, although is improved in face of creatinine of 2.7, it was up to 3.9. Overall prognosis quite poor. Supportive and hospice care should be considered in this patient. Bobby Stringer MD
--- NOTE | 2017-10-23 01:26 | PN ---
DATE: 10/22/2017 SUBJECTIVE: The patient is not responding. PHYSICAL EXAMINATION VITAL SIGNS: Temperature is 97.4, pulse 72, blood pressure 145/78, respirations 18. GENERAL: The patient is lying in bed, flat, comfortable. HEENT: No oral lesion. Anicteric sclerae. Moist mucosa. NECK: No JVD, adenopathy, or thyromegaly. CARDIOVASCULAR: S1 and S2, regular. No murmurs, rubs, or gallops. LUNGS: Clear to auscultation bilaterally. No wheeze, rales, or rhonchi. ABDOMEN: Bowel sounds are positive, soft, nontender and nondistended. EXTREMITIES: no cyanosis, clubbing or edema. LABS: White count of 9.4, hemoglobin 10.4, ____ 153. Chest x-ray done showed no acute findings. 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 ASSESSMENT: 1. Sepsis. 2. Acute kidney injury. 3. Pacemaker. 4. Mitral regurgitation. 5. Tricuspid regurgitation. 6. Dementia, Alzheimer's type. 7. Hypothyroidism. 8. Do not resuscitate. PLAN: The patient is going to be admitted to the hospital. She is on IV fluids for her hyponatremia. She is receiving Synthroid for hypothyroidism. She is on Tamiflu. I will get a.m. labs. Overall prognosis is poor. She is DNR. Raj Rojo MD
[2017-10-23 07:33] LABS: HEMOGLOBIN 10.3 g/dL (12.0-16.0); MEAN CELL VOLUME 97.4 fl (80.0-105.0); MEAN CORPUSCULAR HEMOGLOBIN 30.2 pg (25.0-35.0); MEAN PLATELET VOLUME 10.4 fl (7.0-11.0); RBC 3.41 10^6/uL (3.5-6.1); WHITE BLOOD COUNT 11.4 10^3/ul (4.5-11.0)
[2017-10-23 08:35] LABS: ALB/GLOB RATIO 0.9 (1.1-1.8); ALBUMIN 2.8 g/dL (3.0-4.8); CALCIUM 8.2 mg/dL (8.4-10.5)
[2017-10-23 09:08] VITALS: BP 192/65; PULSE 89; TEMP 97.6; O2SAT 98
--- NOTE | 2017-10-23 12:56 | CP.PCM.CON ---
History of Present Illness - History of Present Illness History of Present Illness: Palliative consult requested by Dr Fern Rojo Reason: Goals of care 86 year old female resident of [facility] who presented with lethargy, decreased appetite,dehydration and altered mental status. MT reports the patient to have had one prior episode of vomiting. There was no nausea,diarrhea or abdominal pain noted. Labs; leukocytosis,UTI,elevated BUN/creatinine, transaminitis,H Influenza negative. PMHx: dementia, cardiac arrhythmia s/p pacemaker, CHF, EF 50%, asthma, COPD, pulmonary HTN, anemia, gait dysfunction, esophagitis, frequent falls. Social History: Non smoker, no alcohol or drug use. Resident of [facility] Family History: Unknown. Advance Care Planning: The patient has a POLST: DNR/DNI. Patients friend Petty White is DUSTIN([phone]). Review of systems: As per HPI, patient somnolent/non verbal Past Patient History - Infectious Disease Hx of Infectious Diseases: None - Tetanus Immunizations Tetanus Immunization: Unknown - Past Medical History & Family History Past Medical History?: Yes - Past Social History Smoking Status: Unknown If Ever Smoked - CARDIAC Hx Cardiac Disorders: Yes Hx Congestive Heart Failure: Yes - PULMONARY Hx Respiratory Disorders: Yes Hx Asthma: Yes Hx Pneumonia: Yes - NEUROLOGICAL Hx Neurological Disorder: Yes Hx Dementia: Yes - HEENT Hx HEENT Problems: Yes Hx Blind: Yes Hx Deafness: Yes - RENAL Hx Chronic Kidney Disease: Yes Hx Renal Failure: Yes - ENDOCRINE/METABOLIC Hx Diabetes Mellitus Type 2: Yes Hx Hypothyroidism: Yes - HEMATOLOGICAL/ONCOLOGICAL Hx Blood Disorders: No - INTEGUMENTARY Hx Dermatological Problems: No - MUSCULOSKELETAL/RHEUMATOLOGICAL Hx Musculoskeletal Disorders: Yes Hx Falls: Yes Hx Unsteady Gait: Yes - GASTROINTESTINAL Hx Gastroesophageal Reflux: Yes (esophagitis) - GENITOURINARY/GYNECOLOGICAL Hx Genitourinary Disorders: Yes Other/Comment: urgency - PSYCHIATRIC Hx Psychophysiologic Disorder: Yes Other/Comment: dementia - SURGICAL HISTORY Hx Surgeries: Yes (rt IOLI) - ANESTHESIA Hx Anesthesia: Yes Hx Anesthesia Reactions: No Hx Malignant Hyperthermia: No Meds Allergies/Adverse Reactions: Allergies Allergy/AdvReac Type Severity Reaction Status Date / Time ciprofloxacin Allergy Severe RASH Verified 10/18/17 12:13 Physical Exam - Constitutional Appears: Cachectic, Chronically Ill - Eye Exam Eye Exam: Normal appearance, PERRL - ENT Exam ENT Exam: Mucous Membranes Moist, Normal Oropharynx - Neck Exam Neck exam: Positive for: Normal Inspection - Respiratory Exam Respiratory Exam: Decreased Breath Sounds, NORMAL BREATHING PATTERN - Cardiovascular Exam Cardiovascular Exam: REGULAR RHYTHM, +S1, +S2 - GI/Abdominal Exam GI & Abdominal Exam: Diminished Bowel Sounds, Soft - Extremities Exam Extremities exam: Positive for: normal capillary refill, pedal edema - Back Exam Back exam: NORMAL INSPECTION - Neurological Exam Neurological exam: Altered - Skin Skin Exam: Dry, Pallor - Additional Findings Additional findings: Palliative performance scale rating 20% Results - Vital Signs Recent Vital Signs: Last Vital Signs Temp 97.6 F 10/23/17 08:00 Pulse 89 10/23/17 08:00 Resp 18 10/23/17 08:00 BP 192/65 H 10/23/17 08:00 Pulse Ox 98 10/23/17 08:00 - Labs Result Diagrams: 10/23/17 06:30 10/23/17 06:30 Labs: Laboratory Results - last 24 hr 10/22/17 10/22/17 10/23/17 16:08 21:50 06:30 WBC 11.4 H D RBC 3.41 L Hgb 10.3 L Hct 33.2 L MCV 97.4 MCH 30.2 MCHC 31.0 RDW 14.0 Plt Count 115 L MPV 10.4 Sodium Potassium Chloride Carbon Dioxide Anion Gap BUN Creatinine Est GFR ( Amer) Est GFR (Non-Af Amer) POC Glucose (mg/dL) 243 H 235 H Random Glucose Calcium Total Bilirubin AST ALT Alkaline Phosphatase Total Protein Albumin Globulin Albumin/Globulin Ratio 10/23/17 10/23/17 10/23/17 06:30 07:33 11:31 WBC RBC Hgb Hct MCV MCH MCHC RDW Plt Count MPV Sodium 149 H Potassium 4.2 Chloride 121 H Carbon Dioxide 19 L Anion Gap 14 BUN 94 H Creatinine 2.2 H Est GFR ( Amer) 25 Est GFR (Non-Af Amer) 21 POC Glucose (mg/dL) 173 H 199 H Random Glucose 181 H Calcium 8.2 L Total Bilirubin 0.9 AST 245 H D ALT 1250 H Alkaline Phosphatase 85 Total Protein 6.0 Albumin 2.8 L Globulin 3.2 Albumin/Globulin Ratio 0.9 L Assessment & Plan - Assessment and Plan (Free Text) Assessment: 89 year a old with history of dementia, CAD,CHF, COPD, pulmonary HTN and anemia who is admitted with dehydration, sepsis, ARBEN Patients POA has already discussed prognosis and comfort measures with attending physician. It was agreed that patient would return to [facility] under comfort or hospice care. Fallon ANAYA also garcía that patient is to return to [facility] with these measures. I tried to reach POA to offer support and assist with transition to comfort care. Unable to leave message. Plan: Palliative support Discharge to [facility] under comfort care
--- NOTE | 2017-10-23 15:14 | DS ---
SUBJECTIVE: This is an 86-year-old female, who had come into the hospital because of sepsis. She also had acute kidney injury. She had cultures done; blood cultures and urine cultures have been negative. She was given IV fluids and had improvement of her symptoms. The patient started improving, but then took a turn for the worse. She is not verbal. She is not able to wake up and speak. She has LFTs that were elevated as well. I spoke with the patient's power of shipping support clerk Petty to give her an update after discussion regarding her current diagnoses and plan of care and also prognosis. The POA decided to make her comfort care. I stopped all her p.o. medications. She is unable to swallow. She is a long-term care resident at [facility], where they do have hospice services. Plan is to probably send her back to [facility]. PHYSICAL EXAMINATION: VITAL SIGNS: Temperature 97.4, pulse is 72, blood pressure 145/78, and respirations 18. GENERAL: The patient is lying in bed, flat, comfortable. HEENT: No oral lesion. Anicteric sclerae. Moist mucosa. NECK: No JVD, adenopathy, or thyromegaly. CARDIOVASCULAR: S1 and S2, regular. No murmurs, rubs, or gallops. LUNGS: Clear to auscultation bilaterally. No wheeze, rales, or rhonchi. ABDOMEN: Bowel sounds are positive, soft, nontender and nondistended. EXTREMITIES: No cyanosis, clubbing or edema. ASSESSMENT: 1. Sepsis. 2. Acute kidney injury. 3. Pacemaker. 4. Mitral regurgitation. 5. Tricuspid regurgitation. 6. Dementia. 7. Hypothyroidism. 8. Do not resuscitate/do not intubate. PLAN: The patient is on Synthroid, Tamiflu, and Tylenol. We will discontinue that. I will discontinue her IV fluids. She has remains n.p.o. She most likely be discharged back to [facility]. Prognosis is poor. Raj Rojo MD
--- NOTE | 2017-10-24 02:11 | PN ---
DATE: 10/23/2017 SUBJECTIVE: The patient is in bed, in no acute distress, nontoxic. PHYSICAL EXAMINATION VITAL SIGNS: Temperature is 97, blood pressure is 190/60, respiratory rate of 18. HEENT: Unremarkable. NECK: Supple. LUNGS: Have decreased breath sounds. HEART: Normal S1 and S2. ABDOMEN: Soft and nontender. LABORATORY DATA: Reveals a white count of 11,400, hemoglobin of 10. Chemistries are noted, BUN of 94, creatinine of 2.2 and his LFTs are noted to be elevated. Urinalysis is negative. Hepatitis profile is negative. Microbiology reveals the blood cultures are no growth and urine cultures are no growth. ASSESSMENT AND PLAN: This is an 86-year-old female seen early this morning in room 574, bed 2 and overall in poor condition, cachectic and chronically ill with end-stage chronic obstructive lung disease, pulmonary hypertension, renal failure, anemia, esophagitis, admitted with systemic inflammatory response syndrome with dementia, hypothyroidism, pacemaker, congestive heart failure, influenza is negative and patient 's overall prognosis is poor, she consider hospice setting. Bobby Stringer MD
== END 2017-10-23 18:19 | disposition hospice, inpatient (51) | DRG 872 ==
LOC: ED 11:29 → ERH 14:12 → 5RSO 17:05
PROVIDERS: ADMIT Internal Medicine Nephrology; ATTEND Internal Medicine Nephrology
DX: A41.9 Sepsis, unspecified organism (principal); N17.9 Acute kidney failure, unspecified; E87.2 Acidosis; E10.22 Type 1 diabetes mellitus with diabetic chronic kidney disease; I08.1 Rheumatic disorders of both mitral and tricuspid valves; R64 Cachexia; I13.0 Hypertensive heart and chronic kidney disease with heart failure and stage 1 through stage 4 chronic kidney disease, or unspecified chronic kidney disease; Z68.1 Body mass index [BMI] 19.9 or less, adult; N39.0 Urinary tract infection, site not specified; I27.20 Pulmonary hypertension, unspecified; J44.9 Chronic obstructive pulmonary disease, unspecified; I25.10 Atherosclerotic heart disease of native coronary artery without angina pectoris; E03.9 Hypothyroidism, unspecified; I50.9 Heart failure, unspecified; N18.3 Chronic kidney disease, stage 3 (moderate); F02.80 Dementia in other diseases classified elsewhere, unspecified severity, without behavioral disturbance, psychotic disturbance, mood disturbance, and anxiety; G30.9 Alzheimer's disease, unspecified; E86.0 Dehydration; D64.9 Anemia, unspecified; K21.0 Gastro-esophageal reflux disease with esophagitis; H91.90 Unspecified hearing loss, unspecified ear; R29.6 Repeated falls; Z66 Do not resuscitate; Z51.5 Encounter for palliative care; Z95.0 Presence of cardiac pacemaker; Z98.42 Cataract extraction status, left eye; Z98.41 Cataract extraction status, right eye